=== PATIENT | male | born 1960 | race Caucasian/White ===

== ENCOUNTER → 2017-02-27 | Outpatient (CLI) | payer BC ==
[~2017-02-27] MED LIST: DICL-201 PO; HYDR-5688 PO
--- NOTE | 2017-02-27 20:27 | DIAGNOSTIC IMAGING REPORT ---
[facility] CLINICAL HISTORY: Nephrolithiasis. Right-sided pain. COMPARISON STUDY: CT of the abdomen and pelvis January 13, 2013 and [facility] July 02, 2014. FINDINGS: A punctate right renal calculus is noted. No ureteral calculi are identified. Pelvic calcifications were shown to represent phleboliths on prior CT. There is a bone island within the medial left iliac bone. Bowel gas pattern is normal. IMPRESSION: Punctate right renal calculus. Possible additional small right renal calculi. No ureteral calculi identified. Electronically signed by: Darci Monahan M.D. 02/27/2017 8:25 PM Dictated Date/Time: 02/27/2017 8:23 PM
== END | disposition home or self-care (01) ==
LOC: C.RAD 19:29
PROVIDERS: ATTEND Urology
DX: N20.0 Calculus of kidney (principal); N40.0 Benign prostatic hyperplasia without lower urinary tract symptoms

== ENCOUNTER → 2017-04-17 | Outpatient (CLI) | payer BC ==
[2017-04-17 14:03] LABS: INFLUENZA B PCR Neg for Influ B (NEG)
[2017-04-17 14:06] LABS: INFLUENZA A PCR POS for Influ A (NEG)
== END | disposition home or self-care (01) ==
LOC: C.LAB 12:14
DX: R50.9 Fever, unspecified (principal); R05 Cough